=== PATIENT | female | born 1950 | race Asian ===

== ENCOUNTER 2018-03-22 15:52 | Emergency (ER) | payer OTHER ==
[~2018-03-22] VITALS: Ht 157.5 cm; Wt 62.4 kg
[~2018-03-22 15:52] MED LIST: NAPROXEN DELAY500 M1 PO; ZOC20 PO
[2018-03-22 17:15] VITALS: BP 137/96
== END 2018-03-22 17:15 | disposition home or self-care (01) ==
LOC: ED 15:52
DX: M79.632 Pain in left forearm (principal); K21.9 Gastro-esophageal reflux disease without esophagitis